=== PATIENT | female | born 1965 | race Caucasian/White ===

== ENCOUNTER → 2021-07-22 10:34 | Outpatient (CLI) | payer OTHER, MEDICAID, SELFPAY ==
--- NOTE | 2021-07-22 10:35 | DI.MRI.S_ITS ---
PROCEDURE: MR SHOULDER RT WO CON INDICATIONS: Persistent right shoulder pain, clinical exam adhesive capsu TECHNIQUE: Noncontrast oblique coronal T2 fast spin echo with fat saturation, oblique sagittal T1 spin echo and T2 fast spin echo with fat saturation, axial T1 spin echo and T2 fast spin echo with fat saturation through the shoulder. COMPARISON: [facility], CR, XR SHOULDER MIN 2VW RT, 02/23/2016, 8:54. [facility] [place], CR, XR SHOULDER RT MIN 2V, 06/09/2021, 8:56. FINDINGS: Image quality: Excellent. Rotator cuff: There is full-thickness tear of the supraspinatus and subscapularis tendon tendons with tendon retraction to the musculotendinous junction. There is a large intramuscular hematoma measuring 4.3 x 5.6 cm with the the supraspinatus muscle which appears enlarged. There is full-thickness tear of the superior fibers of the infraspinatus tendon and severe tendinitis of the inferior fibers of the infraspinatus tendon. There is muscle edema in the infraspinatus tendon suggesting associated muscle strain. Mild infraspinatus muscle atrophy. There is strain of the deltoid muscle. Bones and bursae: No bone marrow contusions or fractures. Severe glenohumeral joint degeneration and moderate acromioclavicular joint degeneration. The acromion demonstrates conventional anatomy, without an os acromiale. There is moderate glenohumeral joint effusion. Capsule and soft tissues: Degenerative labral fraying of the posterior labrum. The long head of the biceps tendon appears thickened with increased signal consistent with tendinitis. The rotator interval appears normal, without fibrosis. The coracohumeral ligament is normal in thickness. IMPRESSION: 1. Full-thickness tear of the supraspinatus and subscapularis tendons with tendon retraction. There is a large intramuscular hematoma in the supraspinatus muscles. 2. Full-thickness tear of the superior fibers of the infraspinatus tendon and severe tendinitis of the inferior fibers of the infraspinatus tendon. There is edema of the infraspinatus muscle consistent with muscle strain. Mild infraspinatus muscle atrophy is present. 3. Muscle strain of the deltoid muscle. 4. Tendinitis of the long head of the biceps tendon. 5. Severe glenohumeral joint degeneration and moderate acromioclavicular joint degeneration. 6. Moderate-sized glenohumeral joint effusion. Dictated by: Tammi Harman M.D. on 07/24/2021 at 8:23 Approved by: Tammi Harman M.D. on 07/24/2021 at 9:13
== END ==
PROVIDERS: PCP Family Medicine; Referring Provider Family Medicine; Visit Provider Family Medicine
DX: M75.01 Adhesive capsulitis of right shoulder (principal); M75.121 Complete rotator cuff tear or rupture of right shoulder, not specified as traumatic; M77.8 Other enthesopathies, not elsewhere classified; M19.011 Primary osteoarthritis, right shoulder; M25.411 Effusion, right shoulder
CPT/HCPCS: 73221

== ENCOUNTER → 2021-08-28 08:46 | Outpatient (CLI) | payer OTHER, MEDICAID, SELFPAY ==
--- NOTE | 2021-08-28 | DI.CT.S_ITS ---
PROCEDURE: CT UE RT WO CON INDICATIONS: Other specific arthropathies, not elsewhere classified, righ TECHNIQUE: Noncontrast 1-1.5 mm thick sections acquired from the acromioclavicular joint to the inferior scapula, with coronal and sagittal reformatting. COMPARISON: [facility], CR, XR SHOULDER 2+ VIEWS RIGHT, 08/08/2021, 15:20. [facility] ([place]), CR, XR SHOULDER RT MIN 2V, 06/09/2021, 8:56. [facility], MR, MR SHOULDER RT WO CON, 07/22/2021, 10:40. FINDINGS: Image quality: There are motion artifacts. Bones: There is severe glenohumeral joint degeneration and moderate acromioclavicular joint degeneration. There is deformity of humeral head. Superior migration of the humeral head is likely secondary to longstanding severe rotator cuff tendon tear. Soft tissues: Full-thickness tear of supraspinatus, infraspinatus and subscapularis tendons and associated muscle edema. Moderate glenohumeral joint effusion. Calcific densities involving rotator cuff tendons consistent with calcific tendinitis. There is also intramuscular calcifications. IMPRESSION: 1. Severe glenohumeral joint degeneration. 2. Moderate acromioclavicular joint degeneration. 3. Full-thickness rotator cuff tendon tear and calcific tendinitis of the rotator cuff tendons. 4. Moderate glenohumeral joint effusion. 5. Intramuscular calcifications consistent with myositis ossificans. Dictated by: Tammi Harman M.D. on 08/28/2021 at 9:20 Approved by: Tammi Harman M.D. on 08/28/2021 at 9:43
== END ==
PROVIDERS: PCP Family Medicine; Referring Provider Orthopaedic Surgery; Visit Provider Orthopaedic Surgery
DX: M19.011 Primary osteoarthritis, right shoulder (principal); M75.121 Complete rotator cuff tear or rupture of right shoulder, not specified as traumatic; M75.31 Calcific tendinitis of right shoulder; M25.411 Effusion, right shoulder
CPT/HCPCS: 73200

== ENCOUNTER → 2022-06-20 12:13 | Outpatient (CLI) | payer OTHER, MEDICAID, SELFPAY ==
[2022-06-20 20:56] LABS: Add Manual Diff / Slide Review NO; Basophils Absolute Auto 0 /uL (0-100); Basophils Percent Auto 0.4 % (0-2); Eosinophils Absolute Auto 100 /uL (0-450); Eosinophils Percent Auto 0.8 % (2-4); Hematocrit 36.6 % (36-46); Hemoglobin 12.9 g/dL (12.0-16.0); Lymphocytes Absolute Auto 1200 /uL (1100-4500); Lymphocytes Percent Auto 13.8 % (25-40); Mean Corpuscular HGB Conc 35.1 % (30-36); Mean Corpuscular Hemoglobin 31.9 PG (26-34); Monocytes Absolute Auto 1000 /uL (0-900); Monocytes Percent Auto 11.2 % (3-14); Neutrophils Absolute Auto 6600 /uL (1500-7000); Neutrophils Percent Auto 73.8 % (50-75); Platelet Count 311 X10^3/uL (150-400); Red Blood Cell Count 4.02 X10^6/uL (4.0-5.2); Red Cell Distribution Width 13.5 % (11.6-14.8); White Blood Cell Count 8.9 X10^3/uL (4.5-11.0)
[2022-06-20 21:53] LABS: TSH w/ Reflex to FT4 0.28 uIU/mL (0.47-4.68)
[2022-06-20 22:23] LABS: BUN Creatinine Ratio 36.2 (6-22); Blood Urea Nitrogen 21 mg/dL (7-17); Calcium 9.3 mg/dL (8.4-10.2); Carbon Dioxide 27 mmol/L (22-32); Chloride 98 mmol/L (98-107); Estimated Glomerular Filt Rate > 60 mL/min (>60); Glucose 105 mg/dL (70-100); HEMOLYSIS < 15 (0-50); Potassium 4.1 mmol/L (3.4-5.1); Sodium 136 mmol/L (137-145)
[2022-06-20 22:30] LABS: Free T4, Direct Thyroxine 1.77 ng/dL (0.78-2.19)
[2022-06-20 23:00] LABS: Hemoglobin A1C% w Est Avg Glu 5.4 % (4.0-6.0)
[2022-06-20 23:13] LABS: Vitamin B12 > 1000 pg/mL (239-931)
[2022-06-25 15:08] LABS: Alpha 1 Globulin 0.3 g/dL (0.0-0.4); Alpha 2 Globulin 0.9 g/dL (0.4-1.0); Gamma Globulin 0.6 g/dL (0.4-1.8); Protein, Total 6.8 g/dL (6.0-8.5)
== END ==
PROVIDERS: PCP Family Medicine; Visit Provider Family Medicine
DX: G62.9 Polyneuropathy, unspecified (principal)
CPT/HCPCS: 80048; 82607; 83036; 84155; 84165; 84439; 84443; 85025

== ENCOUNTER → 2022-11-26 11:48 | Outpatient (CLI) | payer OTHER, MEDICAID, SELFPAY ==
[2022-11-26 21:21] LABS: Cholesterol 196 mg/dL (140-199); HDL Cholesterol 78 mg/dL (40-60); LDL Cholesterol Calculated 101 mg/dL (<100); Triglycerides 85 mg/dL (35-150)
[2022-11-29 14:15] LABS: Anti Thyroglobulin Antibody <1.0 IU/mL (0.0-0.9); Thyroid Peroxidase Antibodies <9 IU/mL (0-34)
== END ==
PROVIDERS: PCP Family Medicine; Visit Provider Family Medicine
DX: Z00.00 Encounter for general adult medical examination without abnormal findings (principal); Z72.0 Tobacco use; Z79.890 Hormone replacement therapy; E05.90 Thyrotoxicosis, unspecified without thyrotoxic crisis or storm
CPT/HCPCS: 80061; 86376; 86800

== ENCOUNTER → 2023-07-30 08:56 | Outpatient (CLI) | payer OTHER, MEDICAID, SELFPAY ==
[2023-07-30 19:36] LABS: Add Manual Diff / Slide Review NO; Basophils Absolute Auto 100 /uL (0-100); Basophils Percent Auto 1.1 % (0-2); Eosinophils Absolute Auto 200 /uL (0-450); Eosinophils Percent Auto 3.4 % (2-4); Hematocrit 38.7 % (36-46); Lymphocytes Absolute Auto 2000 /uL (1100-4500); Lymphocytes Percent Auto 36.3 % (25-40); Mean Corpuscular HGB Conc 33.5 % (30-36); Mean Corpuscular Hemoglobin 31.1 PG (26-34); Mean Corpuscular Volume 92.8 fL (80-100); Monocytes Absolute Auto 400 /uL (0-900); Neutrophils Absolute Auto 2800 /uL (1500-7000); Neutrophils Percent Auto 51.2 % (50-75); Platelet Count 302 X10^3/uL (150-400); Red Blood Cell Count 4.17 X10^6/uL (4.0-5.2); White Blood Cell Count 5.4 X10^3/uL (4.5-11.0)
[2023-07-30 19:53] LABS: Alanine Aminotransferase 13 IU/L (<35); Albumin 3.9 g/dL (3.5-5.0); Albumin Globulin Ratio 1.6 (1.0-2.8); Alkaline Phosphatase 74 U/L (38-126); Aspartate Aminotransferase 19 IU/L (14-36); BUN Creatinine Ratio 28.6 (6-22); Bilirubin Total 0.5 mg/dL (0.2-1.3); Blood Urea Nitrogen 16 mg/dL (7-17); Calcium 9.1 mg/dL (8.4-10.2); Carbon Dioxide 27 mmol/L (22-32); Chloride 102 mmol/L (98-107); Cholesterol 189 mg/dL (140-199); Estimated Glomerular Filt Rate > 60 mL/min (>60); Globulin 2.4 g/dL (1.7-4.1); Glucose 82 mg/dL (80-110); HDL Cholesterol 104 mg/dL (40-60); HEMOLYSIS < 15 (0-50); LDL Cholesterol Calculated 66 mg/dL (<100); Potassium 4.2 mmol/L (3.4-5.1); Sodium 137 mmol/L (137-145); Total Protein 6.3 g/dL (6.3-8.2); Triglycerides 93 mg/dL (35-150)
[2023-07-30 20:17] LABS: TSH w/ Reflex to FT4 2.04 uIU/mL (0.47-4.68)
== END ==
PROVIDERS: PCP Family Medicine; Visit Provider Family Medicine
DX: E87.1 Hypo-osmolality and hyponatremia (principal); E05.90 Thyrotoxicosis, unspecified without thyrotoxic crisis or storm; F11.90 Opioid use, unspecified, uncomplicated; Z79.899 Other long term (current) drug therapy; J44.9 Chronic obstructive pulmonary disease, unspecified
CPT/HCPCS: 80053; 80061; 84443; 85025